=== PATIENT | male | born 1945 | race Native Hawaiian/Other Pacific Islander ===

== ENCOUNTER 2016-10-20 12:16 | Outpatient (CLI) | payer OTHER, MEDICARE ==
[2016-10-20 13:52] LABS: PLATELET COUNT 233 K/uL (142-355)
[2016-10-20 14:17] LABS: POTASSIUM 4.9 mmol/L (3.6-5.2); SODIUM 137 mmol/L (136-145)
== END 2016-10-20 13:20 | disposition home or self-care (01) ==
LOC: LAB 12:16
PROVIDERS: Nurse Practitioner Family
DX: I10 Essential (primary) hypertension (principal); R73.9 Hyperglycemia, unspecified; Z79.899 Other long term (current) drug therapy; R53.83 Other fatigue; R53.81 Other malaise; E55.9 Vitamin D deficiency, unspecified; Z51.81 Encounter for therapeutic drug level monitoring
CPT/HCPCS: 80053; 80061; 82306; 82607; 83036; 84436; 84443; 85027

== ENCOUNTER 2017-03-12 17:53 | Emergency (ER) | payer OTHER, MEDICARE ==
[~2017-03-12] VITALS: Ht 180.3 cm; Wt 127.0 kg
== END 2017-03-12 18:22 | disposition home or self-care (01) ==
LOC: ED 17:53
PROC: 0HQ0XZZ Repair Scalp Skin, External Approach (ICD-10-PCS; principal; 2017-03-12)
DX: S01.01XA Laceration without foreign body of scalp, initial encounter (principal); W30.89XA Contact with other specified agricultural machinery, initial encounter; Y92.89 Other specified places as the place of occurrence of the external cause
CPT/HCPCS: 99282

== ENCOUNTER 2017-07-03 14:22 | Outpatient (CLI) | payer OTHER, MEDICARE | END 2017-07-03 21:34 | disposition home or self-care (01) | LOC: RAD 14:22 | DX: M25.511 Pain in right shoulder (principal) ==

== ENCOUNTER 2017-08-23 14:00 | Outpatient (CLI) | payer OTHER, MEDICARE ==
[2017-08-23 14:15] LABS: PLATELET COUNT 249 K/uL (142-355)
[2017-08-23 15:01] LABS: POTASSIUM 4.4 mmol/L (3.6-5.2)
== END 2017-08-23 21:42 | disposition home or self-care (01) ==
LOC: LAB 14:00
PROVIDERS: Nurse Practitioner Family
DX: I10 Essential (primary) hypertension (principal); Z79.899 Other long term (current) drug therapy; Z51.81 Encounter for therapeutic drug level monitoring; R53.83 Other fatigue; C61 Malignant neoplasm of prostate
CPT/HCPCS: 80053; 80061; 83036; 84154; 84436; 84443; 85027

== ENCOUNTER 2018-11-22 08:33 | Outpatient (CLI) | payer OTHER, MEDICARE ==
[~2018-11-22] VITALS: Ht 180.3 cm; Wt 127.0 kg
== END 2018-11-22 20:14 | disposition home or self-care (01) ==
LOC: NM 08:33
DX: R09.89 Other specified symptoms and signs involving the circulatory and respiratory systems (principal); R07.89 Other chest pain; R94.31 Abnormal electrocardiogram [ECG] [EKG]
CPT/HCPCS: A9500; J2785

== ENCOUNTER 2019-06-20 14:18 | Outpatient (CLI) | payer OTHER, MEDICARE ==
[2019-06-20 15:07] LABS: PLATELET COUNT 242 K/uL (142-355)
[2019-06-20 15:27] LABS: POTASSIUM 4.7 mmol/L (3.6-5.2)
== END 2019-06-20 20:54 | disposition home or self-care (01) ==
LOC: LAB 14:18
PROVIDERS: Nurse Practitioner Family
DX: Z00.00 Encounter for general adult medical examination without abnormal findings (principal); R73.9 Hyperglycemia, unspecified; Z79.899 Other long term (current) drug therapy; I10 Essential (primary) hypertension; R53.81 Other malaise; R53.83 Other fatigue; E78.00 Pure hypercholesterolemia, unspecified; M25.50 Pain in unspecified joint; N40.0 Benign prostatic hyperplasia without lower urinary tract symptoms; E53.8 Deficiency of other specified B group vitamins; E55.9 Vitamin D deficiency, unspecified
CPT/HCPCS: 80053; 80061; 82306; 82607; 83036; 84153; 84439; 84443; 84481; 85027

== ENCOUNTER 2020-01-28 15:46 | Outpatient (CLI) | payer OTHER, MEDICARE ==
[2020-01-28 16:38] LABS: PLATELET COUNT 258 K/uL (142-355)
[2020-01-28 16:53] LABS: POTASSIUM 4.5 mmol/L (3.6-5.2)
== END 2020-01-29 00:46 | disposition home or self-care (01) ==
LOC: LAB 15:46
PROVIDERS: Nurse Practitioner Family
DX: R73.9 Hyperglycemia, unspecified (principal); Z79.899 Other long term (current) drug therapy; I10 Essential (primary) hypertension; R53.83 Other fatigue; R53.81 Other malaise; M25.50 Pain in unspecified joint; N40.0 Benign prostatic hyperplasia without lower urinary tract symptoms
CPT/HCPCS: 80053; 80061; 83036; 84153; 84439; 84443; 84481; 85027

== ENCOUNTER 2022-07-25 08:27 | Outpatient (CLI) | payer OTHER, MEDICARE | END 2022-07-25 20:04 | disposition home or self-care (01) | LOC: RAD 08:27 | PROVIDERS: ATTEND Physician Assistant | DX: M25.512 Pain in left shoulder (principal) ==